=== PATIENT | female | born 1930 | race Caucasian/White ===

== ENCOUNTER 2018-07-31 05:13 | Inpatient (IN) | payer MEDICARE, OTHER ==
[~2018-07-31] VITALS: Ht 165.1 cm; Wt 75.3 kg
[2018-07-31] MEDS ORDERED: FOLBIC TABLET1 EACH PO (05:31)
[2018-07-31] MEDS ORDERED: K-TAB10 MEQ PO (05:31)
[2018-07-31] MEDS ORDERED: LOSARTAN-HCTZ1 EAC1 PO (05:32)
[2018-07-31] MEDS ORDERED: SYNTHROID100 MCG PO (05:32)
--- NOTE | 2018-07-31 13:45 | NUR ---
07/31/18 Rhoda5 Michelle James 1317- PT ARRIVES TO PACU FROM OR ON 8 L VIA MASK WITH SATS >90%. PT UNRESPONSIVE TO VERBAL STIMULUS. NG TUBE ON LOW INTERMITTENT SUCTION. FREQUENT PVCS NOTED ON HEART MONITOR. SURGICAL DRESSING CDI. 1323- PT TITRATED TO 6 L VIA MASK. O2 SATS >90%. PT RESPONDS TO VERBAL STIMULUS BUT UNABLE TO FOLLOW COMMANDS. PT STATES "A LITTLE PAIN" BUT TOLERABLE AND DECLINES NEED FOR PAIN MEDICATION. 1324- PT TITRATED TO RA WITH SATS >90%. PT REMAINS AROUSABLE BUT VERY DROWSY. FREQUENT PVCS AND SOME PACS NOTED ON MONITOR. 1340- PT DESATS TO 88% ON RA. PT RIGHT LATERAL. 2 L VIA NC APPLIED. FOLLOW UP OXYGEN SATS 99%. RESP EVEN AND UNLABORED.
--- NOTE | 2018-07-31 15:00 | NUR ---
PT HAS ARRIVED TO CCU INTO ROOM 129 AT 1445 WITH DAUGHTER AND FAMILY FRIEND AT HER SIDE. UPON ARRIVAL, PT IS AWAKE AND ALERT BUT FORGETFUL AND DISORIENTED TO THE DATE. SHE DENIES ANY PAIN. STATES SHE HAS NO N/V. NO SOB. PT VERY PLEASANT, CALM AND COOPERATIVE. SHE ARRIVED WITH NG IN PLACE- THIS RN HOOKED NG TO INTERMIT WALL SUCTION PER ORDER. NG HAS DARK GREEN OUTPUT IN TUBING; TUBE SECURED TO NOSE WITH TAPE. CLEAR/DIM LUNG SOUNDS. ROOM AIR. BOWEL SOUNDS HYPOACTIVE IN ALL QUADRANTS. TETE SURGICAL INCISION- FOAM DRSG C/D/I AND IN PLACE OVER INCISION. PT ARRIVES WITH 20 G PIV IN RIGHT WRIST- WNL AND D5LR @ 125 ML/HR. PT ARRIVES WITH CARPIO IN PLACE- DRAINING ADEQUATE URINE OUTPUT THAT IS CLEAR, LIGHT YELLOW. PT PLACED ON TELE MONITOR AND IS SR WITH OCCASSIONAL PVC AND PAC'S. PT SIPPING ICE WATER WITHOUT COMPLICATION. EDUCATION GIVEN ON POST OP CARE/PLAN OF CARE. NO QUESTIONS OR CONCERNS. SCD IN PLACE AND ON. CALL LIGHT WITHIN REACH. FALL PRECAUTIONS IN PLACE. WILL CONTINUE TO MONITOR.
--- NOTE | 2018-07-31 16:00 | NUR ---
PT RESTING IN BED WITH DAUGHTER AT THE BEDSIDE. PT HAS NO C/O PAIN, NO N/V. NG REMAINS ON INTERMITTENT SUCTION. PT STATES SHE IS COMFORTABLE WITH NO CONCERNS OR REQUESTS. CALL LIGHT WITHIN REACH. SCD REMAIN IN PLACE. WILL CONTINUE TO MONITOR.
--- NOTE | 2018-07-31 17:30 | NUR ---
DR. BEGUM AT BEDSIDE UPDATING PT'S DAUGHTER ON PLAN OF CARE AND SURGICAL PROCEDURE. PT STATES SHE'S COMFORTABLE AT THIS TIME WITH NO PAIN. NO QUESTIONS OR CONCERNS. CALL LIGHT WITHIN REACH. WILL CONTINUE TO MONITOR.
--- NOTE | 2018-07-31 17:55 | HP ---
[facility] [address], [place] [address] Signed ADMISSION DATE: 07/31/2018 REASON FOR ADMISSION: Acute small bowel obstruction. HISTORY OF PRESENT ILLNESS: This 87-year-old white woman is known to me from the past socially and presented to the emergency room with complaints of low to mid abdominal pain. She was evaluated by Dr. Montenegro and found to have mild tenderness above a creatinine to 1.15 and some nausea, but no particular vomiting. A CT scan was obtained, which showed a decompressed colon as well as numerous loops of dilated fluid-filled small bowel loops in the left abdomen and anteriorly in the pelvis consistent with small bowel obstruction. There appeared to be a tethered appearance at the root of the mesentery. I have reviewed the CT scan with Dr. Linares, the interpreting radiologist as well. There is moderate free fluid in the pelvis. Urinary bladder and gynecologic organs were considered normal. There are degenerative changes of the spine and some calcific changes of the aorta. The superior mesenteric artery and celiac artery are well patent however. The patient's onset was rather sudden and yesterday. Her only abdominal operation in the past has been cholecystectomy. PAST MEDICAL HISTORY: Rather unremarkable. She saw her primary physician Dr. Ford only yesterday and got a "clean bill of health." SOCIAL HISTORY: She has lived in [place] for many decades. She is a . She has grown daughters. She is accompanied by Massiel Presley, a family friend. REVIEW OF SYSTEMS: She denies any shortness of breath or chest pain. She is having no blood per rectum or hematemesis. Nasogastric tube has been placed showing some improvement of her symptoms apparently. PHYSICAL EXAMINATION: GENERAL: Pleasant white woman who is alert and oriented. HEENT: Mucous membranes are dry. Trachea is midline. CHEST: Clear. HEART: Regular without murmur. Electronically Signed By: BRIAN BEGUM MD 07/31/18 8195 PATIENT NAME: ARNAV HERNANDEZ HISTORY AND PHYSICAL DATE OF : 34 REPORT #: [id number] PHYSICIAN: BRIAN BEGUM MD PCP: ÁLVARO FORD DO REPORT IS CONFIDENTIAL AND NOT TO BE RELEASED WITHOUT AUTHORIZATION [facility] [address], [place] [address] Signed ABDOMEN: Not particularly distended. There is mild tenderness in the epigastric and periumbilical area. There is no gross evidence of ascites. EXTREMITIES: Lower extremities show large calves, but no edema particularly and no sign of deep venous thrombosis. LABORATORY STUDIES: Show a Chem profile, which is normal except for a sodium that is 130. Her T4 is 1.48, TSH 4.87, slightly elevated. Vitamin D level is 38. White count is 5.0 with hematocrit of 40.2. These are all lab studies from July 30. Her lab today shows a white count of 9.9, hematocrit of 46.2, platelets of 218,000. Chem profile showing a creatinine now elevated to 1.15, up from 0.99; calcium of 10.5; glucose of 179; lipase at 39. Urinalysis is essentially normal. Review of the CT scan shows edematous jejunal loops to the right side of the abdomen and a jumble of small bowel, which is dilated and some bowel in the pelvis which seems to be decompressed. At the base of the small bowel mesentery, there is an inflammatory focus suggestive though not diagnostic of an adhesive band or something of that sort. ASSESSMENT: The patient has acute onset of small bowel obstruction with significant distention and edema of the bowel loops. Emergent exploration and remedy of this problem is indicated. She needs additional fluids currently and prophylactic antibiotics will be administered as well as Pepcid and so on. I discussed with the patient and her friend who attends her the risk of bleeding, infection, need for bowel resection, need for other indicated procedures, not currently foreseen and so on. Despite her advanced age of 87 years, she remains quite reasonably healthy. She understands the risks as does her friend and wished to proceed. MD CELE Cruz/ELIAL /[id number] Electronically Signed By: BRIAN BEGUM MD 07/31/18 1755 PATIENT NAME: ARNAV HERNANDEZ HISTORY AND PHYSICAL DATE OF : 34 REPORT #: [id number] PHYSICIAN: BRIAN BEGUM MD PCP: ÁLVARO FORD DO REPORT IS CONFIDENTIAL AND NOT TO BE RELEASED WITHOUT AUTHORIZATION [facility] [address], [place] [address] Signed cc: DO Marika Calvo DO Copies: ÁLVARO FORD KATHLEEN DO ~ Electronically Signed By: BRIAN BEGUM MD 07/31/18 1755 PATIENT NAME: ARNAV HERNANDEZ HISTORY AND PHYSICAL DATE OF : 34 REPORT #: [id number] PHYSICIAN: BRIAN BEGUM MD PCP: ÁLVARO FORD DO REPORT IS CONFIDENTIAL AND NOT TO BE RELEASED WITHOUT AUTHORIZATION
--- NOTE | 2018-07-31 18:50 | NUR ---
PT RESTING IN BED COMFORTABLY WITH NO QUESTIONS OR CONCERNS. STATES SHE'S COMFORTABLE AND STILL REFUSES ANY PAIN MEDICATION- NOC DOSE OF OFIRMEV DUE SOON. CALL LIGHT WITHIN REACH. FALL PRECAUTIONS IN PLACE. SCD ON. WILL CONTINUE TO MONITOR AND HAND OFF TO NOC SHIFT.
--- NOTE | 2018-07-31 20:28 | NUR ---
AWAKENS EASILY, IS ESS ORIENTED BUT IS QUESTIONABLY HARD OF HEARING WHEN ASKED A QUESTION WOULD AT FIRST GIVE AN ANSWER THAT DIDN'T MAKE SENSE BUT WHEN ASKED AGAIN WAS CORRECT. ABLE TO MOVE SELF WELL IN BED. INCISION DRY AND INTACT.
--- NOTE | 2018-07-31 22:05 | NUR ---
HAS TURNED SELF TO SIDE AND IS ASLEEP.
--- NOTE | 2018-07-31 23:57 | NUR ---
AWAKENS EASILY, HAD TURNED IN BED AND LINES AND WIRES WERE WRAPPED AROUND PT. UNTANGLE. IS ALERT, CONFUSED TO DATE, REMINDED AND THE LONGER PT IS AWAKE THE LESS CONFUSED SHE BECAME. DENIES PAIN AND STATES FEELS GOOD. DRSG IS DRY AND INTACT.
--- NOTE | 2018-08-01 02:30 | NUR ---
C/O SORE THROAT, GIVEN ROUTINE IV TYLENOL AND SIP WATER, THE WATER DID HELP SOME. NO ABD PAIN.
--- NOTE | 2018-08-01 04:22 | NUR ---
AWAKENS EASILY. CONT TO HAVE MILD SORE THROAT.
--- NOTE | 2018-08-01 06:31 | NUR ---
AWAKE, ALERT, VERY PLEASANT AND TALKATIVE. NO C/O. REPOSTIONED. HAS TAKEN WATER WELL IN MODERATE AMTS.
--- NOTE | 2018-08-01 08:35 | NUR ---
PT RESTING IN BED AT THIS TIME, HER DAUGHTER JUST ARRIVED AT THE BEDSIDE. PT IS VERY PLEASANT, CALM AND COOPERATIVE. PT STATES SHE HAS A HEADACHE OF A 5 OUT OF 10- PRN TORADOL GIVEN. OTHER THAN HER HEADACHE, SHE STATES SHE'S HAVING NO PAIN. NO N/V. NO SOB OR BREATHING PROBLEMS. ASSESSMENT COMPLETED. A/O X4, CLEAR LUNGS. ROOM AIR. D5LR @125 ML/HR RUNNING INTO RIGHT WRIST PIV WITHOUT ISSUES. NGT IN PLACE TO LOW INT WALL SUCTION; NO DRAINAGE PRESENT IN THE TUBING. BOWEL TONES ACTIVE IN UPPER QUADRANTS AND HYPOACTIVE IN LOWER. TETE SURGICAL INCISION IT IS UNDER MEPILEX DRSG WHICH IS C/D/I. PT STATES SHE HASN'T STARTED PASSING GAS YET BUT SHE HAS "BURPED A FEW TIMES." ALL EXTREMITIES STRONG. NSR ON CONTINUOUS TELE WITH OCCASSIONAL PAC'S AND PVC'S. VSS. CARPIO CATHETER IN PLACE DRAINING ADEQUATE, CLEAR YELLOW URINE. PT AND DAUGHTER HAVE NO QUESTIONS OR CONCERNS AND ARE JUST AWAITING DR. BEGUM TO ROUND. CALL LIGHT WITHIN REACH. FALL PRECAUTIONS IN PLACE. SCD'S IN PLACE AND ON. WILL CONTINUE TO MONITOR AND FOLLOW UP ON HEADACHE PAIN CONTROL.
--- NOTE | 2018-08-01 09:45 | NUR ---
PT LAUGHING AND VISITING WITH DAUGHTER AND 2 OTHER FRIENDS AT THE BEDSIDE HERE TO VISIT HER. PT STATES THAT HER HEADACHE IS "MUCH BETTER" AND RATES IT AT A 2 OUT OF 10. PT DENIES ANY NEEDS AT THIS TIME. STATES SHE'S COMFORTABLE AND HAS NO QUESTIONS. CALL LIGHT WITHIN REACH. WILL CONTINUE TO MONITOR.
--- NOTE | 2018-08-01 11:05 | NUR ---
PT STATES HER HEADACHE REMAINS BUT ISN'T "TOO BAD." STATES SHE'S COMFORTABLE. NO QUESTIONS OR NEEDS TO BE MET. DAUGHTER AT BEDSIDE VISITING WITH PT. OFFERED TO HELP PT WITH BEDBATH BUT PT REFUSES, REQUESTING TO GET ONE THIS EVENING. PT ALSO AGREES TO GET UP INTO THE CHAIR AND OUT OF BED WITHIN THE HOUR. I WILL CHECK BACK AND HELP HER WITH THIS. CALL LIGHT WITHIN REACH. WILL CONTINUE TO MONITOR.
--- NOTE | 2018-08-01 12:00 | NUR ---
REPORT GIVEN TO RECEIVING RN JITENDRA; PT TRANSFERED TO M/S UNIT TO ROOM 110 WITH ALL BELONGINGS AND DAUGHTER AT HER SIDE.
--- NOTE | 2018-08-01 12:06 | NUR ---
PT TRANSFERRED TO MED SURG UNIT IN BED. ARRIVED AT 1200. VSS. DAUGHTER, SB, AT BEDSIDE. NG TO EVARISTO.
--- NOTE | 2018-08-01 12:15 | NUR ---
PATIENT SET UP IN CHAIR WITH OLGA LIDIA LOERA. IVF INFUSING. CARPIO DRAINING WELL. ICE WATER PROVIDED. FEET ELEVATED. NO OTHER NEEDS AT THIS TIME.
--- NOTE | 2018-08-01 14:13 | NUR ---
PT IS VISITING WITH A FRIEND AND HAS NO REQUESTS AT THIS TIME. VS AND I&O'S TAKEN AND DOCUMENTED. INFORMED PT TO CALL IF SHE NEEDS ANYTHING. CALL LIGHT IS IN REACH.
--- NOTE | 2018-08-01 15:04 | OR ---
[facility] [address], [place] [address] Signed DATE OF OPERATION: 07/31/2018 SURGEON: Brian Begum MD PREOPERATIVE DIAGNOSIS: Acute small bowel obstruction with severe ischemic changes. POSTOPERATIVE DIAGNOSIS: Acute small bowel obstruction with severe ischemic changes secondary to single adhesive band at root of mesentery with segmental torsion. PROCEDURES PERFORMED: 1. Exploratory laparotomy lysis of inifocal adhesive band. 2. Segmental small bowel resection with [id number] (functional end-to-end) enteroenterostomy of mid small bowel. Resected specimen 12-16 incches length ANESTHESIA: General endotracheal, Brian Cuenca CRNA. INDICATION: This 87-year-old white woman only yesterday saw Dr. Piyush Ford, her primary care physician, and was given a "clean bill of health" as she was doing so well. In general terms, she has very good health. Late yesterday she began having upper abdominal pain and presented to the emergency room today and was evaluated by Dr. Marika Montenegro for upper abdominal pain and distention. A CT scan was performed, which showed marked inflammatory change of the segment of small bowel suggestive of an adhesive band for obstruction. She had markedly thickened small bowel up to 1.5 cm in one area and a fair amount of fluid. The findings are suggestive of an obstruction either related to adhesions or segmental volvulus or something of that sort. Given its appearance and the fact that she has had no extensive abdominal operation (only an open cholecystectomy many years ago), I have recommended rather urgent exploration and remedy of the small bowel obstruction. The risks of bleeding, infection, need for bowel resection, other unforeseen complications were all reviewed in detail. She understands and wished to proceed. FINDINGS: Indeed there was ischemic bowel. It was not frankly necrotic, but markedly ischemic, edematous, and so forth. It was related to a single adhesive band located at the root of the mesentery, which had caused obstruction and torsion of that segment of bowel. Electronically Signed By: BRIAN BEGUM MD 08/01/18 1504 PATIENT NAME: ARNAV HERNANDEZ OPERATIVE REPORT DATE OF : 34 REPORT #: [id number] PHYSICIAN: BRIAN BEGUM MD PCP: PIYUSH FORD DO REPORT IS CONFIDENTIAL AND NOT TO BE RELEASED WITHOUT AUTHORIZATION [facility] [address] [place] [id number] Signed Resection was required, though time was allowed to assess if the bowel would "shape up" enough to reliably be left as is. Segmental resection included approximately 12-18 inches of small bowel in the midportion. A side-to- side functional end-to-end enteroenterostomy was accomplished. There were no other findings of concern. DESCRIPTION OF PROCEDURE: The patient was brought to the operating room, given a general endotracheal anesthetic. Preoperative antibiotic cefoxitin was given. Sequential compression device stockings used and a Doran catheter placed. A nasogastric tube was already in place draining bilious fluid. A small incision was made inferior to the umbilicus. Dissection carried through the abdominal wall pannus and abdomen entered. Copious amounts of bloody ascites type fluid were noted. Gentle palpation within the abdomen showed some bowel loops completely normal and others distended and markedly ischemic. Photographs were taken. With all due care, bowel loops were delivered from the abdomen and palpation revealed an area of obvious tethering of bowel and torsion of segment of bowel. Further evaluation in opening of the abdomen revealed a single adhesive band to the root of the mesentery as the point of obstruction and internal torsion. This was divided sharply relieving the bowel obstruction and torsion entirely. The small bowel was then delivered out of the abdomen and examined carefully. Thrombotic changes of the mesentery and markedly ischemic bowel segment was noted and photographs taken of that as well. Once the bowel was fully eviscerated and irrigation undertaken, irrigation fluid suctioned free. Reassessment of the bowel for viability was undertaken. Although none of the bowel was frankly gangrenous, it was so markedly ischemic I think it unlikely that it would have recovered actually critically as there was thrombotic changes of the mesentery associated with it. Nevertheless, the bowels were placed into the abdomen with all due care, warm water applied, and 5-8 minutes of time elapsed to allow for reassessment. The bowel was once again withdrawn from the abdomen and the area of ischemia more clearly defined. Given her advanced age and so forth, the probability of highest segmental resection with anastomosis would be the most safe course. On that basis, the segment of bowel had considered ischemic, was marked with silk sutures on the antimesenteric aspect, and using electrocautery the mesentery was scored. Sequential application of hemostats was undertaken to the mesenteric vessels and the vascular pedicle secured with 2-0 silk ties. Once the mesentery was completely divided and the bowel proximally and distally defined as viable, a DAVID stapling device 75 mm in length was used to transect the bowel ends. Consideration was made for end-to-end enteroenterostomy, but a etep-ay-ckeo anastomosis may provide a more expedient recovery in her situation and on that basis, a stapled anastomosis was deemed advisable. Silk sutures were used to secure the antimesenteric serosal aspect of the bowel. The staple line was partially secured with interrupted 3-0 silk sutures. Corners of the cut ends of the bowel were excised and the anvils of the Endo-DAVID passed down the bowel loops securing them well. Care was taken to ascertain Electronically Signed By: BRIAN BEGUM MD 08/01/18 1504 PATIENT NAME: ARNAV HERNANDEZ OPERATIVE REPORT DATE OF : 34 REPORT #: [id number] PHYSICIAN: BRIAN BEGUM MD PCP: PIYUSH FORD DO REPORT IS CONFIDENTIAL AND NOT TO BE RELEASED WITHOUT AUTHORIZATION [facility] [address] [place], [place] [address] Signed that the mesentery was not involved in the anastomosis of course. The DAVID stapling device 75 mm in length was fired providing a good anastomotic connection. The anastomotic staple line was examined and found to be hemostatic. Some semi-formed stool or enteric contents within the bowel was removed. The open end of bowel was reapproximated in a watertight closure with two-layer technique of interrupted 3-0 Vicryl and interrupted 3-0 silk. The anastomosis appeared completely viable. The mesenteric defect was secured with running 3-0 silk suture so as to avoid postoperative transmesenteric herniation. The bowel was returned to the abdominal cavity and abdomen copiously irrigated with warm saline solution. Plans were then made for closure. The midline fascia was reapproximated with running bidirectional #1 PDS suture. Subcutaneous tissue irrigated and skin closed with running subcuticular 3-0 Vicryl. Steri-Strips were applied as was a Mepilex silver sponge dressing and an OpSite. The patient tolerated the procedure well. BLOOD LOSS: Minimal. COMPLICATIONS: None. Brian Begum MD JM/MODL /[id number] cc: DO Marika Calvo DO Copies: PIYUSH FORD KATHLEEN DO ~ Electronically Signed By: BRIAN BEGUM MD 08/01/18 1504 PATIENT NAME: ARNAV HERNANDEZ OPERATIVE REPORT DATE OF : 34 REPORT #: [id number] PHYSICIAN: BRIAN BEGUM MD PCP: PIYUSH FORD DO REPORT IS CONFIDENTIAL AND NOT TO BE RELEASED WITHOUT AUTHORIZATION
--- NOTE | 2018-08-01 20:35 | NUR ---
UP TO BR, VOIDEDM BACK TO BED,
--- NOTE | 2018-08-01 21:12 | NUR ---
ROUNDED CHARGE. PATIENT ASSISTED TO AMBULATE X2 LAPS AROUND THE FLOOR. PATIENT DID WELL WITH AMBULATION. PATIENT IS A SBA. PATIENT COMPLAINS OF ABD. PAIN. PATIENT EXPRESSES CONCERN WITH TH PAIN AND FEELING BLOATED. ASSESED PATIENT. ABD SOUNDS ARE ACTIVE. ABD IS DOSFT TO THE TOUCH AND TENDER IN A FEW PLACES. NO DRAINAGE NOTED ON MEPILEX AND OPSITE. PATIENT EDUCATED ON POST-OP PAIN AND GAS. PATIENT PROVIDED WITH SUPPORT. PATIENT GIVEN PRN TORADOL PER ORDER FOR 8/10 PAIN IN HER ABD. PATIENT WAS ALSO ABLE TO VOID. PATIENT IS NOW RESING IN BED. PATIENT DENIES ANY FURTHER NEEDS AT THIS TIME. CALL LIGHT IN REACH.
--- NOTE | 2018-08-01 22:15 | NUR ---
PATIENT ASSISTED TO THE RESTROOM. PATIENT IS A SBA. PATIENT WAS ABLE TO VOID. PATIENTS DAUGHTER IS IN THE ROOM. PATIENT RATES PAIN AT A 6/10. PATIENT GIVEN PRN PAIN MEDICATION PER ORDER. PATIENT GIVEN WARM BLANKET. NO FURHTER NEEDS NOTED. CALL LIGHT IN REACH.
--- NOTE | 2018-08-01 22:43 | NUR ---
PATIENT IS RESTING IN BED. PATIENTS DAUGHTER IS LEAVING FOR THE EVENING. PATIENT RATES PAIN AT A 4/10 IN HER ABD. PATIENT STATED "THE PAIN MEDICATION HELPED". PATIENT DENIES THE NEED FOR ADDITIONAL PAIN MEDICATION AT THIS TIME. CALL LIGHT IN [facility]. NO FURTHER NEEDS AT THIS TIME.
--- NOTE | 2018-08-02 00:51 | EKG ---
[facility] [address] [facility] [place], [place] [address] Signed Normal sinus rhythm Nonspecific ST and T wave abnormality Abnormal ECG No previous ECGs available Confirmed by NEHEMIAS RODRIGUEZ MD ([id number]) on 08/02/2018 12:51:46 AM Electronically Signed By: NEHEMIAS RODRIGUEZ MD 08/02/18 005 PATIENT NAME: ARNAV HERNANDEZ Electrocardiogram DATE OF : 34 PHYSICIAN: NEHEMIAS RODRIGUEZ MD REPORT #: [id number] REPORT IS CONFIDENTIAL AND NOT TO BE RELEASED WITHOUT AUTHORIZATION
--- NOTE | 2018-08-02 01:52 | NUR ---
PT GOT OUT OF BED W/O CALLING FOR HELP, VOIDED QS YELLOW URINE, THEN CAME OUT TO HALLWAYS. PT SEEMED CONFUSED TO PLACE, REORIENTED AND WENT BACK TO BED. IV SITE INTACT. NO C/O PAIN, AND DRESSING INTACT. BED ALARM ON.
--- NOTE | 2018-08-02 03:14 | NUR ---
pt resting, eyes closed, no c/o pain no resp distress. bed alarm on
--- NOTE | 2018-08-02 04:57 | NUR ---
ear plugs given on request as pt is getting upset over the noise coming from the IV pump, explained to her the reason why se still needs the IVF, receptive. Turns self in bed.
--- NOTE | 2018-08-02 04:58 | NUR ---
PT HAS SLEPT THIS SHIFT. HAS TOLERATED CLEAR FLUIDS WELL, NO N/V. AND LOW MIDLINE INCISION COVERED WITH MEPILEX DRESSING CDI, STOMACH SOFT, PASSING GAS, NO BM THIS SHIFT YET, GETS UP WITH 1PA TO BR, HAS VOIDED QS. BED ALARM PLACED ON PT TRIED TO GET UP W/O CALLING AND HAS IVF INFUSING AND SCDS IN PLACE. HAS USED CALL LIGHT APPROPRIATELY LAST 3 TIMES. EAR PLUGS GIVEN ON REQUEST PT WAS C/O OF IV PUMPS BEING TOO NOISE, PT WAS MEDICATED WITH TORADOL AND DILAUDID IV PER C/O ABD PAIN EARLIER THIS SHIFT, MEDS EFFECTIVE
--- NOTE | 2018-08-02 05:53 | NUR ---
PT C/O TO C/O EXTREMELY ANNOYING,PAINFUL,DISTRESSING NOISE COMING FROM IV PUMP. IVF SL AT THIS TIME DUE TO PT CONTINUOUS C/O NOISE DISCOMFORT FROM IV PUMP. DR BEGUM TO BE NOTIFIED. PT HAS BEEN TOLERATING CLEAR LIQUIDS WELL AND VOIDING QS., PASSING GAS, NO C/O PAIN AT THIS TIME, ABD DRESSING CDI
--- NOTE | 2018-08-02 06:31 | NUR ---
PT CRAWLED OUT OF BED, BED ALARM WAS ON. UP TO BR, VOIDED, BACK TO BED. BED ALARM BACK ON. DR BEGUM NOTIFIED EARLIER OF PT BEING DONAVON CARRERA, STATED OK TO DONAVON PT.
--- NOTE | 2018-08-02 07:00 | NUR ---
REPORT RECEIVED FROM DEEJAY STEWARD. PT AWAKE AND WATCHING TV. PT REPORTS 2/10 PAIN THAT "REALLY ISN'T BAD." PT EXPANDS UPON "THOSE MACHIENES MAKING NOISE LAST NIGHT." PT APPEARS CHEERFUL AND HOPES TO WALK THIS MORNING. NO ADDITIONAL REQUESTS OR COMPLAINTS AT THIS TIME. BED ALARM ON. CALL LIGHT WITHIN REACH.
--- NOTE | 2018-08-02 07:52 | NUR ---
MORNING ASSESSMENT AND MEDICATIONS DUE. PT REPORTS 2/10 PAIN. PT ENCOURAGED TO WALK. PT UP TO AMBULATE X2 LAPS AROUND UNIT. PT REPORTS 1/10 PAIN AFTER WALK AND REPORTS PASSING GAS. PT STEADY ON FEET AND TOLERATES WALK W/O SOB. ASSESSMENT DONE. MEDICATION GIVEN. PT EATING CLEAR LIQUID DIET BREAKFAST, TOLERATING WELL. PT DENIES NAUSEA. CALL LIGHT WITHIN REACH.
--- NOTE | 2018-08-02 09:30 | NUR ---
THIS RN TO ROOM TO CHECK ON PT. PT REPORTS 0/10 PAIN AND IS VISITING WITH FAMILY. FAMILY UPDATED ON PT CONDITION. FAMILY VERBALIZES UNDERSTANDING AND STATES THEIR QUESTIONS HAVE BEEN ANSWERED. PT UP IN CHAIR. NO ADDITIONAL REQUESTS OR COMPLAINTS AT THIS TIME.
--- NOTE | 2018-08-02 10:04 | NUR ---
PT UP TO WALK WITH DAUGHTERS IN GAY. PT DENIES DIZZINESS, PAIN, AND NAUSEA AND IS STEADY ON FEET. PT ENCORUAGED TO DRINK FLUIDS. NO ADDITIONAL REQUESTS OR COMPLAINTS AT THIS TIME.
--- NOTE | 2018-08-02 10:13 | NUR ---
THIS RN TO BEDSIDE FOR ROUNDS WITH MD. DIET ADVANCED TO FULL LIQUID (WITH ADVANCE TOLERATED ORDER) PER MD. PT CONTINUES WALK WITH FAMILY. NO ADDITIONAL REQUESTS OR COMPLAINTS.
--- NOTE | 2018-08-02 10:40 | NUR ---
PT CALL LIGHT ON. THIS RN TO ROOM, PT STATES SHE IS WET AND NEEDS CHANGED. PT UP TO STAND WITH 1PA AND FWW, DEPENDS, GOWN AND CHUX CHANGED. JERO CARE DONE. PT BACK TO SITTING IN CHAIR. NO ADDITIONAL REQUESTS OR COMPLAINTS AT THIS TIME. CALL LIGHT WITHIN REACH.
--- NOTE | 2018-08-02 11:48 | NUR ---
PT CALL LIGHT ON. PT REQUESTS A MILKSHAKE, ENSURE MILKSHAKE PROVIDED REQUESTED. PT REPORTS 0/10 PAIN AND DENIES NAUSEA. NOON ASSESSMENT DONE. PT TOLERATING FULL LIQUIDS W/O NAUSEA. PT AMBULATING OFTEN WITH FAMILY MEMBERS. DRESSING CDI. NO ADDITIONAL REQUESTS OR COMPLAINTS AT THIS TIME. CALL LIGHT WITHIN REACH. FAMILY AT BEDSIDE.
--- NOTE | 2018-08-02 12:51 | NUR ---
PT SITTING IN CHAIR, ALERT AND ORIENTED. SHE IS VISITED BY HER 3 DAUGHTERS, AND SEEM TO BE ENJOYING EACH OTHER. PLEASANT VISIT, PT STATED THAT SHE IS FEELING MUCH BETTER THAN WHEN SHE DID ON ADMISSION. ENJOYING SOME "REAL FOOD" AND THE SHAKE DEEJAY ELIZONDO BROUGHT HER. EXTENDED A BLESSING, WILL FOLLOW NEEDED
--- NOTE | 2018-08-02 14:04 | NUR ---
THIS RN TO ROOM TO CHECK ON PT. PT STATES SHE IS "ANXIOUS" TO GO HOME. PT UPDATED ON PLAN OF CARE AND ADVANCING DIET. PT STATES SHE WANTS TO TRY SOLID FOOD. PT DENIES PAIN AND NAUSEA. DIET UPGRADED. TOAST AND JAM ORDERED PER PT REQUEST. PT VISITING WITH FAMILY. NO ADDITIONAL REQUESTS OR COMPLAINTS AT THIS TIME.
--- NOTE | 2018-08-02 15:18 | NUR ---
PT FINISHED WITH SHOWER AND BACK TO CHAIR. PT HAS HAD SMALL BM AND WAS ABLE TO EAT HER TOAST AND JAM. PT DENIES PAIN AND NAUSEA. PT ANTICIPATING DISCHARGE THIS EVENING. FAMILY AT BEDSIDE VISITING WITH PT. CALL LIGHT WITHIN REACH.
--- NOTE | 2018-08-02 16:05 | NUR ---
PATIENT IN BED RESTING. FAMILY IN ROOM. WATER REFRESHED. CALL LIGHT IN REACH. NO FURTHER NEEDS AT THIS TIME.
--- NOTE | 2018-08-02 16:44 | NUR ---
PT EXPECTS TO RETURN HOME UPON DC, STATES HER DAUGHTERS ARE HERE UNTIL AT LEAST MONDAY. 2 DAUGHTERS ARE PRESENT DURING THIS CONVERSATION. THEY DENIED QUESTIONS AT THIS TIME.
--- NOTE | 2018-08-02 16:56 | NUR ---
AFTERNOON ASSESSMENT DUE. THIS RN TO BEDSIDE. PT VISITING WITH DAUGHTERS. PT DENIES PAIN AND NAUSEA. PT ASSISTED WITH ORDERING A SANDWICH FOR DINNER. PT REPORTS HAVING 4 SMALL "WORM LIKE" BOWEL MOVEMENTS. ASSESSMENT DONE. PT ANTICIPATING DISCHARGE THIS EVENIGN. NO ADDITIONAL REQUESTS OR COMPLAINTS AT THIS TIME. CALL LIGHT WITHIN REACH.
--- NOTE | 2018-08-02 19:00 | NUR ---
PT HERE FOR SMALL BOWEL OBSTRUCTION POD2. PT TOLERATING FULL DIET TODAY WITH NO NAUSEA. ONE DOES OF TORDOL GIVEN THIS AM WITH 0/10 PAIN SINCE THAT TIME. PT UP TO AMBULTE MULTIPLE TIMES TODAY, STEADY ON FEET, SBA. PT HAS HAD 4 SMALL LOOSE BOWEL MOVEMENTS THIS AFTERNOON. [employer] AND [employer]PS[employer] DRESSING CDI THIS SHIFT. FAMILY AT BESIDE FOR MOST OF SHIFT. PT ANTICIPATING DISCHARGE IN AURICULAR THERAPIST. PT USES CALL LIGHT APPROPRIATLY.
--- NOTE | 2018-08-02 19:25 | NUR ---
IN ROOM FOR REPORT, PT HAS VISITORS IN THE ROOM AT THIS TIME. CALL LIGHT IS WITHIN REACH, SHE DENIES NEEDS.
--- NOTE | 2018-08-02 20:48 | NUR ---
CHARGE NURSE ROUNDING NOTE: NO C/O PAIN, ABD DRESSING INTACT. TOLERATING DIET WELL, STATES SHE IS PASSING GAS AND HAD A SMALL BM EARLIER TODAY. UP IN CHAIR VISITING WITH FAMILY, CALL LIGHT AND FLUIDS AT BEDSIDE,
--- NOTE | 2018-08-02 21:30 | NUR ---
VITALS AND I&OS DONE AND CHARTED. HELPED PT TO THE BATHROOM AND BACK TO BED. BED ALARM SET. BEDSIDE TABLE AND CALL LIGHT IN REACH.
--- NOTE | 2018-08-02 21:30 | NUR ---
IN ROOM TO ASSESS PT AND ADMINISTER MEDICATIONS. PT DENIES PAIN AND N/V. DRESSING ON ABDOMEN IS CDI AND THERE IS A BRUISE JUST INFERIOR TO THE DRESSING. PT IS HOPING TO LEAVE IN THE MORNING. SHE DENIES NEEDS AT THIS TIME. CALL LIGHT IS CLOSE.
--- NOTE | 2018-08-02 22:00 | NUR ---
HELPED PT TO THE BATHROOM AND BACK TO BED. BED ALARM SET. BEDSIDE TABLE AND CALL LIGHT IN REACH.
--- NOTE | 2018-08-02 22:44 | NUR ---
HELPED PT TO RESTROOM SBA AND BACK TO BED, SHE DENIES FURTHER NEEDS. CALL LIGHT IS CLOSE AND BED ALARM IS ON.
--- NOTE | 2018-08-02 23:15 | NUR ---
HELPED PT TO THE BATHROOM AND BACK TO BED. TURNED OFF HER TV FOR HER. BEDSIDE TABLE AND CALL LIGHT IN REACH. BED ALARM SET.
--- NOTE | 2018-08-03 00:20 | NUR ---
HELPED PT TO THE BATHROOM AND BACK TO BED. BED ALARM SET. BEDSIDE TABLE AND CALL LIGHT IN REACH. PT NEEDS NOTHING ELSE AT THIS TIME.
--- NOTE | 2018-08-03 02:22 | NUR ---
PT IS RESTING WITH EYES CLOSED, RESPIRATIONS ARE EVEN AND NONLABORED. CALL LIGH IS CLOSE AND BED ALARM IS ON.
--- NOTE | 2018-08-03 04:25 | NUR ---
PT IS RESTING WITH EYES CLOSED, RESPIRATIONS ARE EVEN AND NONLABORED. CALL LIGHT IS CLOSE.
--- NOTE | 2018-08-03 05:17 | NUR ---
PT IS UP TO USE RESTROOM AT THIS TIME, SHE IS ASSISTED BY CONCIERGE MANAGER.
--- NOTE | 2018-08-03 05:27 | NUR ---
PT DENIED PAIN THROUGH THE NIGHT BUT THIS MORNING SHE REPORTS A BURNING SENSATION UNDER THE BANDAGE ON THE SKIN. SHE DENIES THE NEED FOR PAIN MEDICINE. SHE IS SBA AND IV IS SL. SHE IS TOLERATING A REGULAR DIET. DRESSING IS CDI. SHE IS ON RA. SHE REFUSES SCDS BECAUSE THEY KEEP HER AWAKE AT NIGHT. SHE HOPES TO GO HOME TODAY.
--- NOTE | 2018-08-03 06:55 | NUR ---
HELPED PT TO THE RESTROOM AND BACK TO BED. SHE DENIES NEEDS AT THIS TIME. CALL LIGHT IS WITHIN REACH.
--- NOTE | 2018-08-03 08:00 | NUR ---
RECEIVED REPORT AT 0700, FOUND PT IN BED WATCHING TV. PT HAD NO NEEDS OR COCNERNS AT THAT TIME.
[2018-08-03] MEDS ORDERED: IBUPROFEN600 MG PO (09:18)
[2018-08-03] MEDS ORDERED: MAPAP325 MG PO (09:19)
--- NOTE | 2018-08-03 11:52 | NUR ---
PT UP AMBULATING IN THE HALLS-BIG SMILE AND READY TO BE DC'D. EXTENDED A BLESSING, WILL FOLLOW NEEDED
--- NOTE | 2018-08-04 13:38 | DS ---
[facility] [address] [place] [place], [place] [address] Signed ADMISSION DATE: 07/31/2018 DISCHARGE DATE: 08/03/2018 REASON FOR ADMISSION: This 87-year-old white woman, the day before current admission, saw her primary physician, Dr. Ford and was doing quite well. Later in the day, she began having severe upper abdominal pain and presented to the emergency room, where she was evaluated by Dr. Zeeshan Zarco for upper abdominal pain and distention. A CT scan was performed, which showed marked inflammatory change of a segment of small bowel suggestive of an adhesive band with internal volvulus and obstruction with some markedly thickened bowel up to 1.5 cm nodule in one area and a fair amount of fluid. She did have tenderness. She was admitted for further evaluation and care. PERTINENT PHYSICAL EXAMINATION: GENERAL: Showed a well-developed and well-nourished, alert and oriented white woman, who was uncomfortable. She showed no evidence of systemic toxicity, however. CHEST: Clear. HEART: Regular. ABDOMEN: Showed tenderness in the epigastric and left abdominal area. EXTREMITIES: Showed no clubbing, cyanosis, or edema, but she did have lower extremity obesity. HOSPITAL COURSE: She was urgently fluid resuscitated, given intravenous antibiotics, and taken directly to operation. Exploratory laparotomy was undertaken showing ischemic bowel, a segment at least 12-14 inches in length. 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 There was no sign of extensive adhesions, only a single unifocal adhesive band at the root of the mesentery. This was divided allowing for delivery of the small bowel. Despite efforts to allow for natural recovery of the bowel's nutritive blood supply, there was thrombosis noted on the mesenteric side of the segment of bowel. She required segmental small bowel resection, approximately 12 to 16 inches of small bowel was resected. A [id number] functional end-to-end staple anastomosis was accomplished. Postoperatively, she was maintained in intensive care unit given her advanced age and need for additional fluid resuscitation. She was noted to be markedly improved postoperatively and advanced to a regular nursing floor and advanced in a diet from liquids to full and ultimately a solid diet, which she tolerated well. By the time of discharge, she is ambulating well. The wound is healing nicely. She has no abdominal Electronically Signed By: BRIAN BEGUM MD 08/04/18 1338 PATIENT NAME: ARNAV HERNANDEZ DISCHARGE SUMMARY DATE OF : 34 REPORT #: [id number] PHYSICIAN: BRIAN BEGUM MD PCP: PIYUSH FORD DO REPORT IS CONFIDENTIAL AND NOT TO BE RELEASED WITHOUT AUTHORIZATION [facility] [address] [place] [id number] Signed pain at all and having bowel movements. FOLLOWUP PLAN: She is return to see me in approximately a month or so. She will continue to ambulate on a daily basis. DISCHARGE MEDICATIONS: Include ibuprofen 600 mg p.o. q.6 hours as needed for pain, #30 and Tylenol 325 mg tablets, two tablets p.o. q.6 hours p.r.n. pain, #30. She will resume her usual medications, potassium 10 mEq p.o. daily, folic acid one tablet p.o. daily, Synthroid 100 mcg p.o. daily, losartan and hydrochlorothiazide 1 tablet p.o. daily. ALLERGIES: Morphine, codeine, and hydrocodone. DISCHARGE DIAGNOSES: 1. 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 2. Hypothyroidism. 3. Hypertension. 4. Obesity. MD CELE Cruz/MODL /[id number] cc: DO Piyush Moya DO Copies: ZEESHAN ZARCO DO Electronically Signed By: BRIAN BEGUM MD 08/04/18 1338 PATIENT NAME: ARNAV HERNANDEZ DISCHARGE SUMMARY DATE OF : 34 REPORT #: [id number] PHYSICIAN: BRIAN BEGUM MD PCP: PIYUSH FORD DO REPORT IS CONFIDENTIAL AND NOT TO BE RELEASED WITHOUT AUTHORIZATION [address] [address] Signed PIYUSH FORD DO ~ Electronically Signed By: BRIAN BEGUM MD 08/04/18 1338 PATIENT NAME: ARNAV HERNANDEZ JUANY DISCHARGE SUMMARY DATE OF : 34 REPORT #: [id number] PHYSICIAN: BRIAN BEGUM MD PCP: PIYUSH FORD DO REPORT IS CONFIDENTIAL AND NOT TO BE RELEASED WITHOUT AUTHORIZATION
== END 2018-08-03 10:35 | disposition home or self-care (01) | DRG 330 ==
LOC: ED 05:13 → CCU 09:42 → DSVR 09:42 → CCU 14:40 → MS 08-01 11:55
PROVIDERS: ADMIT Surgery
PROC: 0DB80ZZ Excision of Small Intestine, Open Approach (ICD-10-PCS; principal; 2018-07-31 11:45)
DX: K56.50 Intestinal adhesions [bands], unspecified as to partial versus complete obstruction (principal); K55.9 Vascular disorder of intestine, unspecified; I10 Essential (primary) hypertension; E66.9 Obesity, unspecified; E03.9 Hypothyroidism, unspecified; Z68.27 Body mass index [BMI] 27.0-27.9, adult; Z66 Do not resuscitate; Z87.891 Personal history of nicotine dependence; Z79.899 Other long term (current) drug therapy; Z88.5 Allergy status to narcotic agent; Z90.49 Acquired absence of other specified parts of digestive tract
CPT/HCPCS: 00840; 36415; 74018; 74177; 80053; 81001; 83690; 85025; 88307; 93005; 93010; 96361; 96374; 96375; 96376; 99285-25; J0131; J0694; J1100; J1170; J1644; J1720; J1885; J2250; J2405; J2704; J2765; J3010; J7030; J7120; Q9967

== ENCOUNTER 2018-08-08 04:19 | Observation (INO) | payer MEDICARE, OTHER ==
[~2018-08-08] VITALS: Ht 165.1 cm; Wt 75.0 kg
[~2018-08-08 04:19] MED LIST: FOLBIC TABLET1 EACH PO; IBUPROFEN600 MG PO; K-TAB10 MEQ PO; LOSARTAN-HCTZ1 EAC1 PO; MAPAP325 MG PO; SYNTHROID100 MCG PO
--- OUTSIDE RECORDS SUMMARY | 2018-08-08 04:24 | XMS ---
PreManage Notification: ARNAV HERNNADEZ Security Supervisor Seaming Events No recent Security Events currently on file CRITERIA MET - [facility] - 2 Visits in 30 Days CARE PROVIDERS Juventino Grande MD PHONE: Unknown Nathan has no Care Guidelines for this patient. Carmela VISIT COUNT (12 MO.) 2 [facility] TOTAL 2 NOTE: Visits indicate total known visits. ED/UCC VISIT TRACKING (12 MO.) 08/08/2018 04:19 [facility] TYPE: Emergency COMPLAINT: - VOMITING,ABD PAIN 07/31/2018 05:14 [facility] TYPE: Emergency COMPLAINT: - ABD PAIN,VOMITING INPATIENT VISIT TRACKING (12 MO.) 07/31/2018 09:42 [facility] TYPE: Medical Surgical COMPLAINT: - SMALL BOWEL OBSTRUCTION DIAGNOSES: - Obesity, unspecified - Hypothyroidism, unspecified - Acquired absence of other specified parts of digestive tract - Body mass index (BMI) 27.0-27.9, adult - Essential (primary) hypertension - Personal history of nicotine dependence - Acquired absence of other specified parts of digestive tract - Do not resuscitate - Allergy status to narcotic agent status - Intestinal adhesions [bands], unspecified as to partial versus complete obstruction - Vascular disorder of intestine, unspecified - Do not resuscitate - Unspecified intestinal obstruction, unspecified as to partial versus complete obstruction - Essential (primary) hypertension - Body mass index (BMI) 27.0-27.9, adult - Other nursing home (current) drug therapy - Allergy status to narcotic agent status - Other manager long term care (current) drug therapy - 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
--- NOTE | 2018-08-08 07:30 | NUR ---
PT ARRIVES TO MED SURG FLOOR VIA STRETCHER. SBA TO RESTROOM FOR VOID AND BACK TO BED, GAIT STEADY. VSS. PT RATES PAIN 2/10 IN ABDOMEN, STATES "OKAY". NO C/O NAUSEA AT THIS TIME. INSTRUCTED PT TO USE CALL LIGHT FOR ANY NEEDS, INCREASE IN PAIN, VERBALIZES UNDERSTANDING. CALL LIGHT IN REACH.
--- NOTE | 2018-08-08 07:38 | NUR ---
REPORT FROM BRITTANEY VILLALBA. PT TO ROOM 113 ON ED STRETCHER, AMBULATES TO RESTROOM WITH STAND BY ASSIST
--- NOTE | 2018-08-08 08:05 | NUR ---
PT RESTING SUPINE IN BED VISITING WITH FAMILY. CALL LIGHT AND H20 IN REACH. PT DENIES NEEDS OR CONCERNS.
--- NOTE | 2018-08-08 08:23 | NUR ---
PATIENT RESTING IN BED, CALL LIGHT IN REACH. PATIENT GIVEN WARM BLANKETS AND OFFERED AM CARE. NO OTHER NEEDS AT THIS TIME.
--- NOTE | 2018-08-08 08:57 | NUR ---
URINE SAMPLE COLLECTED AND SENT TO LAB.
--- NOTE | 2018-08-08 09:32 | NUR ---
NGT PLACED PER ORDER. PLACED TO PT RIGHT NOSTRIL. PT TOLERATED WELL. NO DIFFICULTY WITH ADVANCING. PT TOLERATED VERY WELL. 20ML AIR FLUSHED IN TUBE FOR BEDSIDE ASSESSMENT OF PLACEMENT AUSCULTATED AIR SOUND AT GASTRIC LEVEL. ASSESSED FLUIDS GREEN GASTRIC IN NATURE. PLACED PT TO LOW INTERMITTEN SUCTION, 400ML GREEN FLUID OUT AT THIS TIME, IMAGING IN ROOM AT THIS TIME.
--- NOTE | 2018-08-08 10:18 | NUR ---
PATIENT COMPLAINS OF CHAPPED LIPS AND A PAINFUL KNEE. PATIENT REPOSITIONED WITH PILLOW FOR COMFORT. PATIENT GIVEN CHAPSTICK, ICE CHIPS AND ORAL SWABS WITH RN'S PERMISSION. RN IN ROOM. CALL LIGHT IN REACH. NO OTHER NEEDS AT THIS TIME.
--- NOTE | 2018-08-08 10:29 | NUR ---
B/P NOTED TO BE 176 SYSTOLIC, PT REPORTS PAIN IN KNEE CHRONIC AND SORE THROAT. PT ADMINISTERED [id number] IV AND CEPACOL SELENA. AT THIS TIME ALSO GIVEN SIPSS OF WATER AND ICE CHIPS AT BEDSIDE FOR COMFORT. WILL RECHECK B/P AND PAIN ASSESSMENT.
[2018-08-08] MEDS ORDERED: FUROSEMIDE20 MG PO (11:44)
--- NOTE | 2018-08-08 12:38 | NUR ---
PT RESTING SUPINE IN BED WITH HOB ELEVATED CALL LIGHT AND MOISTENED TOOTHETS WITHIN REACH FOR COMFORT D/T NPO STATUS. PT DENIES PAIN, NAUSEA OR SOB. STATES THE BACK OF HER THROAT FEELS A LITTLE IRRITATED FROM THE NG TUBE BUT THAT IS TOLERABLE. NO FURTHER NEEDS OR CONCERNS VOICED AND PT APPEARS TO BE IN GOOD SPIRITS. NG REMAINS ON LOW INTERMITTANT SUCTION.
--- NOTE | 2018-08-08 13:56 | NUR ---
PT IN BED, ALERT AND ORIENTED. DISCOURAGED BUT NOT DEFEATED AT BEING BACK LESS THAN 1 WK FROM DC. VISITORS IN, PLEASANT VISIT. EXTENDED BLESSING, WILL FOLLOW NEEDED
--- NOTE | 2018-08-08 14:23 | NUR ---
Pt resting supine in bed watching tv. NG tube continues on low intermittent suction. pt denies needs and appears to be tolorating tx well. call light and h20 in reach.
--- NOTE | 2018-08-08 14:41 | NUR ---
THIS SUPERVISOR BEET END ASSISTED PATIENT UP TO BATHROOM AND BACK TO BED. PATIENT REFUSED TO WEAR SCDS, RN NOTIFIED, PATIENT EDUCATED ON USES OF SCDS. CALL LIGHT IN REACH, FRESH ICE CHIPS AT BEDSIDE. NO OTHER NEEDS AT THIS TIME.
--- NOTE | 2018-08-08 16:35 | NUR ---
In to answer call light, pt concerned that her ng tube wasn't plugged into the wall. Pt resting in bed with hob elevated. Pt denies pain, sob or nausea. NG tube verified to be on low intermittent wall suction and all connections verified to be secured. Pt deneis furhter concerns or requests and states she is comfortable. call ligth and moistened toothettes in reach.
--- NOTE | 2018-08-08 16:57 | NUR ---
PT STATES SHE IS GOING TO BE RETURNING HOME AGAIN UPON DC, SHE STATES SHE IS VERY INDEPENDENT AND WANTS TO CONT THAT WAY, SHE HAS 3 DAUGHTERS THAT LIVE IN [facility].
--- NOTE | 2018-08-08 17:05 | NUR ---
pt resting supine in bed states pain has increased to 8/10 to her abd and up to throat. IV opiod administered. call light and h20 in reach. Pt placed on pulse ox and given incentive spirometer and agrees to use 10x per hour while awake. Pt was educated on is use. family at bedside and agrees to use call light if cpox beeping.
--- NOTE | 2018-08-08 18:32 | NUR ---
PT REPORTS PERSISTING PAIN OF 8/10 TO ABD AND THROAT. M D NOTIFIED OF PT'S PAIN LEVEL ADMN THAT PT REFUSES SCD'S. NEW ORDER FOR DILAUDID 0.5MG W14GSHS IV PRN PAIN RECEIVED.
--- NOTE | 2018-08-08 19:10 | NUR ---
notified of low urine output. new order for lr bolus 500mls received. Report given to DEEJAY Kay.
--- NOTE | 2018-08-08 19:21 | HP ---
[facility] [address] [place], [place] [address] Signed ADMISSION DATE: 08/08/2018 OBSERVATIONAL ADMIT REASON FOR ADMISSION: Small bowel obstruction, probable anastomotic edema. HISTORY OF PRESENT ILLNESS: This 87-year-old white woman was operated on by me emergently on July 31, 2018 for segmental volvulus related to an adhesion. Segmental bowel resection with krhd-zv-[id number] functional end-to-end anastomosis was accomplished. She had a very prompt and rapid recovery, and was discharged to home on August 03, 2018. She has been doing well at home until last night, whereupon she had epigastric pain with symptoms suggestive of her prior obstructive process. She presented to the emergency room, where she was evaluated by Dr. Santiago and a plain abdominal x-ray showed signs of bowel obstruction. A CT scan was subsequently performed confirming bowel obstruction likely at the site of her anastomosis. She is admitted for further evaluation and care at this time. PAST MEDICAL HISTORY: Surprisingly unremarkable despite her advanced age. PAST SURGICAL HISTORY: Her recent operation was the first abdominal surgery that she has had. SOCIAL HISTORY: She is . She has adult grown daughters who attend to her. She is accompanied by a family friend, Maranda Flores. REVIEW OF SYSTEMS: She has had some vomiting, not much. She feels "acid" in the stomach. She denies any shortness of breath or chest pain. PHYSICAL EXAMINATION: GENERAL: Pleasant white woman who does not look systemically toxic. HEENT: Mucous membranes are reasonably moist. Trachea is midline. CHEST: Shows normal respiratory excursion. ABDOMEN: Surprisingly nondistended. It is not particularly focally tender. Incision is healing well. EXTREMITIES: Show no clubbing, cyanosis, or edema. Electronically Signed By: BRIAN BEGUM MD 08/08/18 1921 PATIENT NAME: ARNAV HERNANDEZ HISTORY AND PHYSICAL DATE OF : 34 REPORT #: [id number] PHYSICIAN: BRIAN BEGUM MD PCP: ÁLVARO FORD DO REPORT IS CONFIDENTIAL AND NOT TO BE RELEASED WITHOUT AUTHORIZATION [facility] [address] [place], [place] [address] Signed LABORATORY DATA: White count is 6.0, hematocrit 37.4, and platelets 209,000. Chem profile essentially normal. Glucose 123, albumin 3.2, and lipase 22. Urinalysis pending. I have reviewed her KUB and her CT scan. ASSESSMENT: She appears to have obstruction at the anastomosis. This was a widely patent anastomosis and I suspect the reason for this is brando-anastomotic edema rather than stricture or other problem. At this point, nasogastric tube for decompression as well as intravenous fluids and bowel rest would be appropriate. This may resolve promptly, if not then operative intervention will be necessary. We discussed this in detail and she understands and agrees. MD CELE Cruz/ARIEL /[id number] Copies: ~ Electronically Signed By: BRIAN BEGUM MD 08/08/18 1921 PATIENT NAME: ARNAV HERNANDEZ HISTORY AND PHYSICAL DATE OF : 34 REPORT #: [id number] PHYSICIAN: BRIAN BEGUM MD PCP: ÁLVARO FORD DO REPORT IS CONFIDENTIAL AND NOT TO BE RELEASED WITHOUT AUTHORIZATION
--- NOTE | 2018-08-08 19:25 | NUR ---
[facility]. PT REPORTS 6/10 PAIN, BUT DESCRIBES PAIN "GOOD 6/10 PAIN". PT DENIES NEEDS AT THIS TIME, CALL LIGHT IN REACH. NG TUBE IN PLACE TO LOW INTERMITTENT SUCTION. IV FLUIDS INFUSING PER MD ORDERS, SITE WNL.
--- NOTE | 2018-08-08 20:03 | NUR ---
ASSESSMENT COMPLETE, SCHEDULED MEDS GIVEN (SEE EMAR). VSS AND I&O'S RECORDED. 2LNC IN PLACE WITH CPOX, HR AND O2 WNL. PT A/OX4, RATES PAIN 6/10, BUT DESCRIBES "A GOOD 6/10, BETTER THAN IT WAS". PT DENIES FURTHER NEEDS. LR BOLUS INFUSING, SITE WNL. INCISION SITE WELL APPROXIMATED, OPEN TO AIR. DAUGHTER IN ROOM. PT DENIES FURTHER NEEDS, CALL LIGHT IN REACH.
--- NOTE | 2018-08-08 23:00 | NUR ---
PT RESTING IN BED, RR EVEN AND UNLABORED. 2L NC IN PLACE, CPOX NOTED, 02 SAT AND HR WNL. NG TUBE IN PLACE, LOW CONTINUOUS SUCTION. CALL LIGHT IN REACH.
--- NOTE | 2018-08-09 05:51 | NUR ---
VITALS AND I&OS DONE AND CHARTED. HELPED PT TO THE BSC AND BACK TO BED. ICE CHIPS GIVEN. LET DEEJAY XIONG KNOW OF LOW OUTPUT 100MM LAST FOUR HRS. BEDSIDE TABLE AND CALL LIGHT IN REACH.
--- NOTE | 2018-08-09 06:00 | NUR ---
ASSESSMENT COMPLETE. NO NEW CONCERNS. PT A/OX4, RATES PAIN 3/10, DENIES NEED FOR PAIN MEDICATION AT THIS TIME. NG TUBE TO LOW INTERMITTENT SUCTION IN PLACE. VSS. INCISION SITE WELL APPROXIMATED AND OPEN TO AIR. CALL LIGHT IN REACH.
--- NOTE | 2018-08-09 06:02 | NUR ---
PT HAD A GRIS, SLEPT FOR MOST OF THE SHIFT. PT A/OX4, PAIN CONTROLLED WITH PRN PAIN MEDICATION. IV FLUIDS INFUSING, SITE WNL. PT SBA W/ AMBULATION, VOIDING BORDERLINE QS UO. DR BEGUM AWARE. PT NPO, WITH ICE CHIPS FOR COMFORT. BOWEL TONES ACTIVE, INCISION SITE WELL APPROXIMATED AND OPEN TO AIR. NG TUBE ON LOW INTERMITTENT SUCTION, 180 OUTPUT THIS SHIFT. PT USES CALL LIGHT APPROPERIATELY.
--- NOTE | 2018-08-09 06:45 | NUR ---
new bag of iv fluids hung per md orders, iv site wnl. call light in reach.
--- NOTE | 2018-08-09 07:35 | NUR ---
in room receiving report from DEEJAY ndaiye. PT reports nasuea and begins to attemtp to vomit. NG tube suction increased and is now draining copious amounts of brown drainage. dr pace notified and new order received for iv zofran. pt also reports TREJO and abd pain. PRN dilaudid and prn toradol administered along with zofran. Call light and moistened toothetes in reach and family at bedside. Pt states she is feeling better. cpox in place and pt remains on 2lpnc. Pt denies further needs or concerns.
--- NOTE | 2018-08-09 07:45 | NUR ---
dr pace aware of pt's low uo. new orders to increase maintenance fluid of d5lr from 100 to 125 mls/hr. new order verified via telophone order read back. no additional orders, call light in reach.
--- NOTE | 2018-08-09 11:30 | NUR ---
PATIENT IN BED. DAUGHTER IN ROOM. PATIENT WALKS OUTSIDE THE ROOM THREE LAPS. PATIENT BACKS TO ROOM. PATIENT USING BATHROOM LINENS CHANGED. PATIENT BACKS TO BED. CALL LIGHT WITHIN REACH. NO OTHER NEEDS AT THIS TIME
--- NOTE | 2018-08-09 11:55 | NUR ---
PT IN BED, NG TUBE IN PLACE AND DAUGHTER AT BS. PT IS ALERT AND ORIENTED AND WELCOMED ME. FAMILY STATED THAT PT NEEDS TO REST, I EXTENDED A BLESSING, AND LET DEEJAY KWAN KNOW OF FAMILY'S WISHES FOR PT. WILL FOLLOW NEEDED
--- NOTE | 2018-08-09 12:08 | NUR ---
Pt resting supine in bed eyes closed and respirations even and unlabored pt alert to voice and states the back of her throat is bothering her and that the lozenges haven't really been helping mutch. Dr Bland notified and new order received for prn po throat spray to back of throat. Pt reports releif with administration.
--- NOTE | 2018-08-09 12:14 | NUR ---
PT STATES "AM I GOING TO BE ABLE TO EAT SOMETHING SOON? i HAVENT EATEN ANYTHING IN 4 DAYS. I AM NOT HUNGRY BUT JUST THOUIGHT THAT WAS A LONG TIME TO GO BETWEEN MEALS." PT ASSURED THAT SHE IS RECEIVING IV FLUIDS THAT ARE ASSISTING IN KEEPING HER ELECTROLYTES AND BLOOD SUGAR IN NORMAL LIMITS AND THAT SOON HER SBO RESOLVES ITSELF WE WILL BE ABLE TO CHANGE HER DIET SO THAT SHE CAN BEGIN TO EAT AGAIN. PT GIVEN THROAT LOZENGE PER HER REQUEST. NO FURHTER NEEDS/COCNERNS VOICED. NG TUBE CONTINUES TO LOW INTERMITTANT SUCTION. MAINTENANCE FLUIDS INFUSING. CALL LIGHT AND H20 IN REACH.
--- NOTE | 2018-08-09 13:22 | NUR ---
PATIENT IN BED WATCHING TV. VITAL SIGNS AND I&O DONE. CALL LIGHT WITHIN REACH. NO OTHER NEEDS AT THIS TIME
--- NOTE | 2018-08-09 15:12 | NUR ---
Pt resting supine in bed back from restroom. Pt voided 50mls of concentrated yellow urine. Dr. Bland notified of low urine output and VORB for 1000ml lr bolus over 1 hr. Fluids now administering through iv. no needs voiced and family at bedside. Call light and moistened toothettes in reach.
--- NOTE | 2018-08-09 16:48 | NUR ---
In to see patient. Patient resting supine in bed with hob elevated. Call light and moistened toothettes in reach. Pt denies needs. Family remains at bedside and ng tube remains hooked up to low intermittant suction.
--- NOTE | 2018-08-09 17:19 | NUR ---
NG collection container replaced. 500mls of brown gastric liquid emptied at this time and documented in i/o's. Pt denies any flatus or bm yet. Pt states she is comfortable all things considered and states the throat spray is helping with her sore throat. No needs voiced. call light and h20 in reach.
--- NOTE | 2018-08-09 17:53 | NUR ---
PATIENT SITTING UP IN BED PLAYING CARDS WITH HER DAUGHTER. PATIENT USES [employer] COMMODE. ONE PERSON ASSISTING. PATIENT BACKS TO BED. VITAL SIGNS AND I&O DONE. CALL LIGHT WITHIN REACH. NO OTHER NEEDS AT THIS TIME
--- NOTE | 2018-08-09 19:00 | NUR ---
SHIFT REPORT RECEIVED FROM OSITO KWAN. PT AWAKE AND A/OX4. IV FLUIDS INFUSING PER MD ORDERS, SITE WNL. NG TUBE TO LOW INTERMITTENT SUCTION. PT DENIES NEEDS ATT HIS TIME. CALL LIGHT IN REACH. FAMILY IN ROOM.
--- NOTE | 2018-08-09 19:35 | NUR ---
BEDSIDE REPORT GIVEN TO DEEJAY XIONG. PT REPORTS PALPABLE MASS TO ABD ABOVE PAST SURGICAL INCISION SITE. MASS WAS PALPABLE APPROX SIZE OF GOLFBALL. NO DRAINAGE NOTED TO NG TUBE FOR PAST 2 HOURS SO NG TUBE WAS FLUSHED WITH 30MLS OF WARM WATER WITH GOOD RETURN, NG TUBE PATENT. BT'S NOW HYPERACTIVE AND PT WAS RECENTLY ABLE TO PASS FLATUS. AWARE OF FINDINGS. NEW ORDER RECEIVED FOR LATERAL XRAY, CHARGE NURSE AWARE. MD WAS ALSO NOTIFIED OF PT'S PERSISTING LOW URINE OUTPUT. NO NEW ORDERS.
--- NOTE | 2018-08-09 21:30 | NUR ---
ASSESSMENT COMPLETE. PT A/OX4, RATES PAIN 10/10 IN NASAL PASSAGES RELATED TO NG TUBE. PRN DILAUDID GIVEN (SEE EMAR). PT PULLED OUT NG TUBE APPROX.1-2INCHES FROM ORIGINAL PLACEMENT. PT STATES, "IF YOU DON'T TAKE THIS THING OUT, THEN I WILL". 25-50 MLS IN NG TUBE CANASTER SINCE CANASTER WAS REPLACED BY DAYSHIFT AT 1700. DR BEGUM AWARE. VERBAL ORDERS READ BACK FROM DR BEGUM TO TRY AND PUSH NG TUBE TO ORIGINAL PLACEMENT IF PT TOLERATES. IF ABLE TO PUSH NG TUBE TO ORIGINAL PLACEMENT, NO ORDERS FOR IMAGING TO CONFIRM PLACEMENT NEEDED. IF PT REFUSES, THEN OKAY TO LEAVE NG TUBE IN CURRENT POSITION PER DR BEGUM. IF PT REMOVES NG TUB, OKAY TO LEAVE NG TUBE OUT PER DR BEGUM. NO FURTHER ORDERS.
--- NOTE | 2018-08-09 22:30 | NUR ---
SCHEDULED MEDICATION GIVEN (SEE EMAR). PRN ATIVAN GIVEN FOR ANXIETY RELATED TO NG TUBE. WILL ATTEMPT TO RETURN NG TUBE TO ORIGINAL PLACEMENT FOLLOWING EFFECT OF IV ATIVAN. NO ADDITIONAL NEEDS AT THIS TIME. PT RESTING, EYES CLOSED. RR EVEN AND UNLABORED. PT APPEARS UNCOMFORTBALE RELATED TO NG TUBE PLACEMENT. PT STATED, "I DON'T WANT THIS THING IN MY NOSE ANYMORE. IT HURTS.". DAUGHTER IN ROOM. CALL LIGHT IN REACH.
--- NOTE | 2018-08-09 23:15 | NUR ---
IN ROOM TO CHECK ON PT. PT RESTING IN BED, EYES CLOSED, RR EVEN AND UNLABORED. NG TUBE OUT OF NARE AND ON FLOOR. WHEN ASKED WHAT HAPPENED TO NG TUBE, PT STATED, "I TOOK IT OUT, I FEEL A LOT BETTER NOW. I'M SORRY". PT ASSESSED BY THIS RN. BOWEL TONES HYPERACTIVE, PT DENIES NAUSEA. NO BLEEDING OR DRAINAGE NOTED IN ORAL OR NASAL PASSAGES. LUNG SOUNDS CLEAR. PT DENIES PAIN, SOB. BONE CRUSHER AWARE. DAUGHTER ALSO INFORMED PER REQUEST. CPOX AND O2 OFF OF PT. NEW O2 SAT PROBE IAND 2LNC IN PLACE. O2 SAT MIED TO UPPER 90'S, HR WNL. PT DENIES FURTHER NEEDS, CALL LIGHT IN REACH.
--- NOTE | 2018-08-09 23:55 | NUR ---
DR BEGUM AWARE OF PT'S REMOVAL OF NG TUBE. NO NEW ORDERS.
--- NOTE | 2018-08-10 00:14 | NUR ---
PT RESTING IN BED, APPEARS COMFORTABLE, RR WNL. IV FLUIDS INFUSING, SITE WNL. CALL LIGHT IN REACH.
--- NOTE | 2018-08-10 01:38 | NUR ---
NEW BAG OF IV FLUIDS INFUSING PER MD ORDERS, SITE WNL.
--- NOTE | 2018-08-10 03:10 | NUR ---
THIS RN IN ROOM TO ROUND ON PT. LIVESTOCK EXHIBITOR IN ROOM WITH PT. INFORMED BY LIVESTOCK EXHIBITOR THAT PT HAD WALKED TO NURSES STATION BECAUSE PT HAD "HEARD WATER IN THE BASEMENT". PT HAD DISCONNECTED SELF FROM IV PUMP AND CPOX. PT RECONNECTED TO IV PUMP, IV SITE WNL, PATENT, AND FLUSHED EASILY. O2 MONITOR IN PLACE, O2 SAT WITH 2LNC AND HR WNL. NO FURTHER NEEDS, CALL LIGHT IN REACH.
--- NOTE | 2018-08-10 03:15 | NUR ---
ASSESSMENT COMPLETE. NO NEW CONCERNS. PT A/OX4, DENIES PAIN APPEARS COMFORTABLE. INCISION SITE WELL APPROXIMATED, OPEN TO AIR AND DRY. O2 SAT WNL, NC TITRATED DOWN TO 1LNC, MAINTAINING AT UPPER 90'S. NO FURTHER NEEDS, CALL LIGHT IN REACH.
--- NOTE | 2018-08-10 05:45 | NUR ---
SPOKE TO PT'S DAUGHTER DESTINY REGARDING PT'S UPDATE DURING NIGHT. ALL QUESTIONS ANSWERED.
--- NOTE | 2018-08-10 06:33 | NUR ---
PT A/OX4, PAIN CONTROLLED WITH PRN PAIN MEDICATIONS. PT PULLED OUT NG TUBE DURING SHIFT SHY AWARE. BOWEL TONES HYPERACTIVE, PT DENIES NAUSEA, NPO AT THIS TIME WITH EXCEPTION OF ICE CHIPS FOR COMFORT. PT 1PA W/ AMBULATION, CAN BE IMPATIENT AT TIMES, BED ALARM ON. IV FLUIDS INFUSING, SITE WNL. VSS, PT ON CPOX.
--- NOTE | 2018-08-10 07:47 | NUR ---
RECIEVED BEDSIDE REPORT FROM DEEJAY XIONG. PT SLEEPING SOUNDLY WITH 1L O2 ONLY WHILE SLEEPING SHE DESATED WITH SLEEP. INCISION FROM 07/31/18 IS C/D/I, DRY CAN TENDER. NO NG TUBE PLACED AT THIS TIME, MD AWARE. PASSING GAS, NO NAUSEA, NO PAIN. XRAY ORDERED. PATIENT NPO. BED ALARM ON.
--- NOTE | 2018-08-10 09:26 | NUR ---
PATIENT RESTING IN BED. PATIENT WALKS TO BATHROOM TO TAKE A SHOWER. PATIENT TAKES A SHOWER. ONE PERSON ASSISTING. PATIENT BACKS TO BED. VITAL SIGNS AND I&O DONE. CALL LIGHT WITHIN REACH. NO OTHER NEEDS AT THIS TIME
--- NOTE | 2018-08-10 11:58 | NUR ---
DR BEGUM GAVE VERBAL ORDER OF "YES, GIVE 20MG AT HS ONLY". ORDER ENTERED.
--- NOTE | 2018-08-10 12:06 | NUR ---
UP, AMBULATING IN HALLS WITH DAUGHTER. PT STATED SHE PULLED THE NG TUBE OUT LAST NIGHT."I JUST COULDN'T TAKE IT ANYMORE". PLEASANT VISIT, WILL CONTINUE TO FOLLOW
--- NOTE | 2018-08-10 13:37 | NUR ---
PATIENT IN BED WATCHING TV. DAUGHTER IN ROOM. VITAL SIGNS AND I&O DONE. CALL LIGHT WITHIN REACH. NO OTHER NEEDS AT THIS TIME
--- NOTE | 2018-08-10 14:05 | NUR ---
PT'S DAUGHTER STEPPED OUT OF THE ROOM. IF DR BEGUM ROUNDS, SHE WOULD LIKE A RN TO ROUND WITH HIM.
--- NOTE | 2018-08-10 14:22 | NUR ---
PT APPEARED IN HER DOORWAY, REQUESTING ASSISTANCE TO THE BATHROOM. RN ASSISTED TO THE BATHROOM. ON THE WAY BACK TO HER BED, PT STATED TO THE RN THAT SHE "WAS JUST ABOUT READY TO GO TO [place] TO FIND A SURGEON TO TAKE CARE OF ME". RN ASKED WHAT SHE MEANT, PT STATED "DR BEGUM HASN'T TAKEN CARE OF ME. HOW MANY PEOPLE ARE AHEAD OF ME?" RN ATTEMPTED SERVICE RECOVERY, EXPLAINING DR BEGUM HAS BEEN EXTREMELY BUSY. PT STATED "THEN HE SHOULDN'T HAVE TAKEN ME ON. HE IS A FAMILY FRIEND SO IT IS EVEN WORSE." RN CONTINUED SERVICE RECOVERY. RN NOTIFIED BECKIE, SANDWICH MAKER. BECKIE, SANDWICH MAKER DID SERVICE RECOVERY. WE WILL ESCORT DR BEGUM TO HER ROOM FIRST WHEN DR BEGUM RETURNS TO THE FLOOR.
--- NOTE | 2018-08-10 14:48 | NUR ---
DR BGEUM HAS ROUNDED WITH PT. HER DAUGHTER IS IN THE ROOM AT THIS TIME. ADVISED PT'S DAUGHTER OF PT CONCERNS. DAUGHTER STATED THAT IS ANXIETY.
--- NOTE | 2018-08-10 16:48 | NUR ---
PT UP WALKING THE GAY WITH HER DAUGHTER. TOLERATING WELL. PT IS VERY HAPPY WITH THE CARE RECIEVED.
--- NOTE | 2018-08-10 17:20 | NUR ---
PATIENT RESTING IN BED. DAUGHTER IN ROOM. VITAL SIGNS AND I&O DONE. CALL LIGHT WITHIN REACH. NO OTHER NEEDS AT THIS TIME
--- NOTE | 2018-08-10 17:39 | NUR ---
PT UP AMBULATING HALLS MULTIPLE TIMES. PT UP TO BATHROOM WITH FAMILY. USES CALL LIGHT APROPRIATELY. NPO, DENIES NAUSEA/VOMITING. REMOVED NG TUBE OVERNIGHT, REFUSES TO HAVE IT REPLACED. NO PAIN. PT BECAME FRUSTRATED WAITING FOR DR BEGUM TO ROUND, BUT IS HAPPY WITH CARE AT THIS TIME. FAMILY AT BEDSIDE MAJORITY OF THE DAY. ICE CHIPS FOR COMFORT.
--- NOTE | 2018-08-10 19:15 | NUR ---
BEDSIDE REPORT RECEIVED FROM OFFGOING RN. PT RESTING IN BED. DENIES NEEDS AT THIS TIME. CALL LIGHT WITHIN REACH.
--- NOTE | 2018-08-10 21:11 | NUR ---
PATIENT UP TO THE REST ROOM STBA 1P WITH 4WW TO AND FROM BED. PATIENT BACK TO BED, CALL LIGHT IN REACH, ICE CHIPS GIVEN.
--- NOTE | 2018-08-10 21:12 | NUR ---
CHARGE NURSE ROUNDING NOTE: RESTING, AWAKES EASILY, NO C/O PAIN. CONTINUES ON NPO DIET STATUS. NO C/O N/V AT THIS TIME. CALL LIGHT AT BEDSIDE
--- NOTE | 2018-08-10 23:06 | NUR ---
PT ASSESSMENT COMPLETE. PT DENIES PAIN, NAUSEA, SOB. PT STATES THAT SHE IS SLIGHTLY ANXIOUS, STATES SHE IS UNABLE TO SLEEP. PRN ATIVAN ADMINISTERED. LUNG SOUNDS WITH CRACKLES TO RIGHT LOWER LOBE, DOES NOT CLEAR WITH COUGH. OLD INCISION TO MIDLINE, WELL APPROXIMATED. BT'S ACTIVE. PT DENIES ABD TENDERNESS. GENERALIZED EDEMA TO BLE'S. PT DENIES FURTHER NEEDS. CALL LIGHT WITHIN REACH. PT AGREES TO USE CALL LIGHT FOR NEEDS.
--- NOTE | 2018-08-11 01:09 | NUR ---
PT UTILIZES CALL LIGHT, REQUESTS WARM BLANKET. PROVIDED. PT DENIES FURTHER NEEDS. CALL LIGHT WITHIN REACH.
--- NOTE | 2018-08-11 02:50 | NUR ---
PT ASSESSMENT COMPLETE. PT RESTING IN BED WITH EYES CLOSED. WAKES EASILY WHEN DEVICE PROCESSING ENGINEER ENTERS ROOM. PT DENIES PAIN, NAUSEA, SOB. LUNG SOUNDS CLEAR AT THIS TIME. BT'S ACTIVE. PT REPORTS PASSING FLATUS DURING ASSESSMENT. DENIES ABD TENDERNESS. INCISION TO MIDLINE ABD WELL APROXIMATED. PT DENIES NEEDS AT THIS TIME. CALL LIGHT IN REACH. ROOM IN VIEW OF RN STATION.
--- NOTE | 2018-08-11 06:02 | NUR ---
PT ANXIOUS EARLY IN SHIFT. PRN ATIVAN ADMINISTERED. PT SLEPT WELL AFTER. NO REPORTS OF PAIN, NAUSEA, OR SOB. INCISION FROM PREVIOUS SURGERY WELL APPROXIMATED. BT'S ACTIVE. ABD NON-TENDER. PT PASSING FLATUS. LG FORMED BM LATE THIS SHIFT. UO QS. JANY. NATHAN @ 125. NPO WITH SIPS. KUB THIS AM.
--- NOTE | 2018-08-11 07:48 | NUR ---
PT HAD ANOTHER BOWEL MOVEMENT, LARGE, LIQUID. PT LEAKED SMALL AMT ON BED, SO RN CHANGED LINENS. PT UP TO CHAIR. DAUGHTER IN ROOM. PT WILL WALK IN HALLS SHORTLY.
--- NOTE | 2018-08-11 10:15 | NUR ---
PATIENT IN BED, CURRENTLY NPO, HAD A VISITOR (DAUGHTER), NEEDED NO OTHER ASSISTANCE
--- NOTE | 2018-08-11 11:09 | NUR ---
ROUNDED WITH DR BEGUM. DIET UPGRADED TO FULL LIQUID "ANYTHING POURABLE". PT REQUESTED CHICKEN BROTH. GIVEN, PT STATED IT TASTES GOOD. HEADACHE RESOLVED.
--- NOTE | 2018-08-11 17:47 | NUR ---
PT IS FINISHING [place] FOR DINNER. REPORTS NO NAUSEA, NO VOMITING, NO INCREASED PAIN. IVF RUNNING.
--- NOTE | 2018-08-11 19:30 | NUR ---
BEDSIDE REPORT RECEIVED FROM OFFGOING RN. PT LYING IN BED VISITING WITH DAUGHTER AT BEDSIDE. NEEDS DENIED AT THIS TIME. CALL LIGHT WITHIN REACH.
--- NOTE | 2018-08-11 22:08 | NUR ---
PT ASSESSMENT COMPLETE. PT DENIES PAIN, NAUSEA, OR SOB. BT'S ACTIVE, ABD NONTENDER. GENERALIZED EDEMEA TO BLE'S. PT REQUESTS ICE CHIPS, PROVIDED. PT DENIES OTHER NEEDS. CALL LIGHT IN REACH. PT IMPULSIVE, GETS UP TO THE BATHROOM UNAIDED, BED ALARM ACTIVE.
--- NOTE | 2018-08-11 23:20 | NUR ---
V/S AND I&O DONE AND CHARTED. 1 PA/ SBA TO THE BATHROOM AND BACK TO BED. SIDE TABLE AND CALL LIGHT WITHIN REACH. BED ALARM ON.
--- NOTE | 2018-08-12 00:26 | NUR ---
PT UTILIZES CALL LIGHT TO USE THE BATHROOM. PT TO BATHROOM AND BACK TO BED X 2 DUE TO LOOSE STOOL. PT TOLERATED WELL. DENIES FURTHER NEEDS. BEDALARM ACTIVE. CALL LIGHT IN REACH.
--- NOTE | 2018-08-12 02:00 | NUR ---
PT UTILIZES CALL LIGHT REQUESTS TO USE THE BATHROOM. PT UP AND BACK TO BED WITH ASSISTANCE. TOLERATED WELL. DENIES FURTHER NEEDS. BED ALARM IN PLACE. CALL LIGHT WITHIN REACH.
--- NOTE | 2018-08-12 03:38 | NUR ---
PT ASSESSMENT COMPLETE. PT DENIES PAIN, NAUSEA, AND SOB. ASSESSMENT UNCHANGED FROM PREVIOUS. PT CONTINUES TO VOID FREQUENTLY. BED ALARM IN PLACE FOR IMPULSIVITIY. PT USING CALL LIGHT FOR MOST NEEDS. CALL LIGHT REMAINS WITHIN REACH. PT DENIES FURTHER NEEDS AT THIS TIME.
--- NOTE | 2018-08-12 07:24 | NUR ---
RECIEVED BEDSIDE REPORT FROM DEEJAY GAMEZ. PT SLEEPING AT THIS TIME. IVF INFUSING, BREATHING EVEN AND UNLABORED. PT UP MULTIPLE TIMES TO VOID AND SMALL, LOOSE BM. PASSING GAS.
--- NOTE | 2018-08-12 09:05 | NUR ---
PT UP WALKING WITH HER DAUGHTER. REPORTS A MILD HEADACHE AND BACKACHE, BUT STATES FEELING BETTER AFTER AMBULATING. PT HAD CONCERNS ABOUT HER DIET, SHE GOT OATMEAL FOR BREAKFAST AND WAS WORRIED ABOUT HER TRAY. RN ASSURED HER THAT HER TRAY WAS APROPRIATE.
--- NOTE | 2018-08-12 13:36 | NUR ---
Patient in bed with daughter watching a movie, in room
--- NOTE | 2018-08-12 14:23 | NUR ---
RN GAVE PT A LIST OF FOOD IDEAS THAT ARE "POURABLE" AND LIQUID. PT VERBALIZED UNDERSTANDING TO AVOID "CHUNKY" OR SPICY SOUPS FOR NOW AND STICK TO THE BASIC CREAMY AND PLAIN SOUPS.
--- NOTE | 2018-08-12 18:03 | NUR ---
PT AMBULATING WELL. IVF DISCONTINUED, IV SALINE LOCKED AT THIS TIME. ENCOURAGE PO INTAKE. PT REQUESTED LIST OF OK FOODS- RN GAVE HER A GENERAL LIST OF FULL LIQUID FOODS. CAUTIONED PT ON "CHUNKY" OR SPICY FOODS. PT TOLERATING ORAL INTAKE WELL. VOIDING WELL. FAMILY AT BEDSIDE.
--- NOTE | 2018-08-12 19:00 | NUR ---
BEDSIDE REPORT RECEIVED FROM OFFGOING RN. PT PLAYING CRIBBAGE WITH HER DAUGHTER. BOTH PARTICIPATE IN REPORT. NEEDS DENIED AT THIS TIME. CALL LIGHT IN REACH.
--- NOTE | 2018-08-12 19:52 | NUR ---
PATIENT CALLED TO USE THE BATHROOM. 1 SBA. PATIENT IS BACK IN BED. WATER AND ICE CHIPS GIVEN. CALL LIGHT WITHIN REACH.
--- NOTE | 2018-08-12 22:04 | NUR ---
PT ASSESSMENT COMPLETE. PT DENIES PAIN, NAUSEA, AND SOB. BT'S ACTIVE, PT REPORTS CONTINUING TO PASS FLATUS. PT ASSISTED TO AMBULATE TO BATHROOM AND BACK TO BED, TOLERATED WELL. BED ALARM ACTIVATED FOR TIMES OF IMPULSIVITY. PT DENIES FURTHER NEEDS AT THIS TIME. CALL LIGHT IN REACH.
--- NOTE | 2018-08-12 23:40 | NUR ---
V/S DONE AND CHARTED. SBA TO THE BATHROOM AND BACK TO BED. BED ALARM ON.
--- NOTE | 2018-08-13 00:30 | NUR ---
PT RESTING IN BED WITH EYES CLOSED. APPEARS TO BE SLEEPING. DOES NOT WAKE WHILE WRTIER IN DOORWAY. BED ALARM ACTIVE. CALL LIGHT WITHIN REACH.
--- NOTE | 2018-08-13 03:16 | NUR ---
PT ASSESSMENT COMPLETE. PT RESTING IN BED, WAKES EASILY WHEN FINISHED GOODS PLANNER ENTERS THE ROOM. PT REPORTS THAT SHE HAS BEEN PASSING GAS AND IS BEGINNING TO FEEL LIKE SHE NEEDS TO HAVE ANOTHER BM. PT DENIES PAIN, NAUSEA, OR SOB. BT'S ACTIVE, ABD NON TENDER. PT DENIES NEEDS AT THIS TIME. CALL LIGHT IN REACH. BED ALARM ACTIVE.
--- NOTE | 2018-08-13 06:00 | NUR ---
PT RESTED WELL THIS SHIFT. NO C/O PAIN, NAUSEA, OR SOB. BT'S ACTIVE, ABD NONTENDER. PREVIOUS SURGICAL SITE AT MIDLINE WELL APPROXIMATED. PT CONTINUES TO PASS FLATUS, NO BM THIS SHIFT. SBA. IV SL. UO QS. PT IMPULSIVE, BED ALARM IN PLACE.
--- NOTE | 2018-08-13 08:08 | NUR ---
PT REPORTS FEELING "PRETTY GOOD" THIS MORNING. SHE IS EXCITED TO HAVE HER DAUGHTER COME UP AND GO FOR A WALK. SHE CANCELED HER SOFT BOILED EGG FOR BREAKFAST CONCERNED ABOUT NAUSEA. SHE HAD HOT CHOCOLATE, WHICH "TASTED GREAT!".
--- NOTE | 2018-08-13 09:59 | NUR ---
PATIENT IN CHAIR DRESSED AND READY TO DC. IV TAKEN OUT UPON RN REQUEST. CALL LIGHT IN REACH. NO FURTHER NEEDS AT THIS TIME.
[2018-08-13] MEDS ORDERED: PREVACID 24HR15 MG PO (10:27)
--- NOTE | 2018-08-13 15:09 | NUR ---
LATE ENTRY FROM 10 AM: MET WITH PATIENT TO DISCUSS A FULL LIQUID DIET FOR HOME. ONE OF HER DAUGHTERS WAS THERE WELL. SHE WILL TAKE PATIENT HOME AND THE OTHER DAUGHTER WILL BE COMING TO HELP TAKE CARE OF PATIENT. EXPLAINED WHAT IS ALLOWED ON A FULL LIQUID DIET. ANSWERED THEIR QUESTIONS. ALSO PROVIDED A LOW-FIBER DIET HANDOUT FROM THE [facility] FOR WHEN HER DIET IS ADVANCED. PATIENT HATES HOT CEREAL. LIKES MILK TOAST, PASTA, FRUITS AND VEGGIES. SHE AND HER DAUGHTER HAVE GOOD UNDERSTANDING AND SHOULD DO FINE. MY NAME AND OFFICE # PROVIDED IN CASE FURTHER QUESTIONS ARISE.
--- NOTE | 2018-08-15 12:09 | DS ---
[facility] [address], [place] [address] Signed ADMISSION DATE: 08/08/2018 DISCHARGE DATE: 08/13/2018 REASON FOR ADMISSION: Small bowel obstruction (early postoperative). 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 Segmental bowel resection with [id number] functional end-to-end anastomosis was accomplished. She had a prompt and rapid recovery and discharged home on August 03. She had been doing well until the night prior to admission where she had epigastric pain and symptoms suggestive of prior obstructive process. She presented to the emergency room. She was evaluated by Dr. Santiago and a plain abdominal x-ray showed signs of bowel obstruction. A CT was performed confirming bowel obstruction likely at the site of her anastomosis. She was admitted for further evaluation and care. PERTINENT PHYSICAL EXAMINATION: GENERAL: Showed a pleasant white woman, who did not look systemically toxic. HEENT: Mucous membranes are moist. Trachea midline. CHEST: Clear. HEART: Regular without murmur. ABDOMEN: Surprisingly nondistended and not focally tender. Incision was healing well. No sign of hernia. LABORATORY DATA: White count was 6.0, hematocrit 37.4. Lipase 22. HOSPITAL COURSE: She was admitted and a nasogastric tube was placed, which did drain bilious fluid. The patient is noted to have fair amount of anxiety by her daughter and very low doses of Ativan were given as needed. She had retching and vomiting even with a nasogastric tube initially, but this improved. Abdominal x-rays were obtained for progress showing improvement. It was my suspicion that her anastomosis had edema rather than any sort of torsion or other problem. She refused a nasogastric tube. By August 10, 2018, it was removed and careful observation undertaken. She had no nausea or vomiting, was feeling much better. She did then have bowel movements. Serial abdominal x-ray showed still some distended loops of small bowel, but an improvement was noted. She was given clear liquids, which she tolerated Electronically Signed By: BRIAN BEGUM MD 08/15/18 1209 PATIENT NAME: ARNAV HERNANDEZ DISCHARGE SUMMARY DATE OF : 34 REPORT #: [id number] PHYSICIAN: BRIAN BEGUM MD PCP: ÁLVARO FORD DO REPORT IS CONFIDENTIAL AND NOT TO BE RELEASED WITHOUT AUTHORIZATION [facility] [address], [place] [address] Signed and additional liquids, which she tolerated well. Although, her plain abdominal x-ray is not perfect yet, it is certainly much better and clinically she is doing well. She strongly wishes to be discharged home. It is my expectation that the anastomotic edema is resolving and will continue to resolve over time. We plan to send her home with a liquid diet primarily to include Ensure or Boost or other high-protein liquids and to avoid solid food for the time being. She will see us back in a week or so. We will get an abdominal x-ray prior to her visit. If she has further problems, she will let us know and we will go from there. She may require an imaging study again, possibly small bowel follow-through. I think it is unlikely that she has any kind of volvulus, internal hernia, or other similar problem, more likely edema (resolving) at the anastomosis. DISCHARGE MEDICATIONS: Include: 1. Potassium chloride 10 mEq p.o. daily. 2. Folic acid one tablet p.o. daily. 3. Synthroid 100 mcg p.o. daily. 4. Losartan and hydrochlorothiazide 100/25 one p.o. daily. 5. Tylenol 325 mg tablets two tablets p.o. q.6 hours p.r.n. pain. 6. Lasix 20 mg daily for leg swelling. DISCHARGE DIAGNOSES: 1. Postoperative small bowel obstruction, likely related to anastomotic edema (resolving). 2. 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 3. Leg edema, for which Lasix was given. 4. Hypertension. 5. Hypothyroidism. Brian Begum MD /ELIAL /[id number] Electronically Signed By: BRIAN BEGUM MD 08/15/18 1209 PATIENT NAME: ARNAV HERNANDEZ DISCHARGE SUMMARY DATE OF : 34 REPORT #: [id number] PHYSICIAN: BRIAN BEGUM MD PCP: ÁLVARO FORD DO REPORT IS CONFIDENTIAL AND NOT TO BE RELEASED WITHOUT AUTHORIZATION [address] [address] Signed Copies: ~ Electronically Signed By: BRIAN BEGUM MD 08/15/18 1209 PATIENT NAME: ARNAV HERNANDEZ DISCHARGE SUMMARY DATE OF : 34 REPORT #: [id number] PHYSICIAN: BRIAN BEGUM MD PCP: ÁLVARO FORD DO REPORT IS CONFIDENTIAL AND NOT TO BE RELEASED WITHOUT AUTHORIZATION
== END 2018-08-13 10:52 | disposition home or self-care (01) ==
LOC: ED 04:19 → MS 04:20
PROVIDERS: ADMIT Surgery
DX: K91.30 Postprocedural intestinal obstruction, unspecified as to partial versus complete (principal); E03.9 Hypothyroidism, unspecified; I10 Essential (primary) hypertension; F41.9 Anxiety disorder, unspecified; R60.0 Localized edema; Y83.6 Removal of other organ (partial) (total) as the cause of abnormal reaction of the patient, or of later complication, without mention of misadventure at the time of the procedure; Z87.891 Personal history of nicotine dependence; Z88.5 Allergy status to narcotic agent; Z79.899 Other long term (current) drug therapy
CPT/HCPCS: 36415; 71045; 74018; 74019; 74022; 74177; 80053; 81001; 82247; 82465; 83615; 83690; 84100; 84478; 84550; 85025; 94762; 96361; 96372; 96374; 96375; 96376; 99285-25; G0378; J1170; J1644; J1885; J2060; J2405; J3010; J7120; Q9967

== ENCOUNTER 2018-12-11 21:07 | Emergency (ER) | payer MEDICARE, OTHER ==
[~2018-12-11] VITALS: Ht 165.1 cm; Wt 70.3 kg
[~2018-12-11 21:07] MED LIST changes: +FUROSEMIDE20 MG PO; +PREVACID 24HR15 MG PO
--- OUTSIDE RECORDS SUMMARY | 2018-12-11 21:10 | XMS ---
PreManage Notification: ARNAV HERNANDEZ Security Fitting Room Maintenance Mechanic Events No recent Security Events currently on file CRITERIA MET - [facility] - Has Care Guidelines CARE PROVIDERS ÁLVARO FORD Internal Medicine 08/08/2018-Current PHONE: Unknown Juventino Grande MD PHONE: Unknown Nathan has no Care Guidelines for this patient. Care History Medical/Surgical 08/08/2018 [facility] - Patient is currently established with [facility]. If patient is seen in the ED during business hours. Please contact CHWs at [facility]. Care Recommendation: This patient has had 5 or more Emergency Department visits in the last 12 months.\T\nbsp; Patient requires education on the scope and purpose of the ED as an acute care provider not a Primary Care Provider and should not be utilized for chronic conditions.\T\nbsp; These are guidelines and the provider should exercise clinical judgment when providing care. E.D. VISIT COUNT (12 MO.) 3 [facility] TOTAL 3 NOTE: Visits indicate total known visits. ED/UCC VISIT TRACKING (12 MO.) 12/11/2018 21:08 [facility] TYPE: Emergency COMPLAINT: - ABD PAIN 08/08/2018 04:19 [facility] TYPE: Emergency COMPLAINT: - VOMITING,ABD PAIN 07/31/2018 05:14 [facility] TYPE: Emergency COMPLAINT: - ABD PAIN,VOMITING INPATIENT VISIT TRACKING (12 MO.) 08/08/2018 04:20 [facility] TYPE: Observation COMPLAINT: - SMALL BOWEL OBST DIAGNOSES: - Anxiety disorder, unspecified - Essential (primary) hypertension - Allergy status to narcotic agent status - Postprocedural intestinal obstruction, unspecified as to partial versus complete - Other care home (current) drug therapy - Hypothyroidism, unspecified - Unspecified abdominal pain - Personal history of nicotine dependence - Localized edema - Removal of other organ (partial) (total) as the cause of abnormal reaction of the patient, or of later complication, without mention of misadventure at the time of the procedure 07/31/2018 09:[address] [facility] [place] TYPE: Medical Surgical COMPLAINT: - SMALL [...] mass index (BMI) 27.0-27.9, adult - Other care home (current) drug therapy - Allergy status to narcotic agent status - Other care home (current) drug therapy - Intestinal adhesions [bands], unspecified as to partial versus complete obstruction - Vascular disorder of intestine, unspecified - Obesity, unspecified - Hypothyroidism, unspecified - Personal history of nicotine dependence [email or web address]
[2018-12-11] MEDS ORDERED: MOBIC15 MG PO (22:17)
[2018-12-12] MEDS ORDERED: MACROBID 100 M100 MG PO (00:34)
== END 2018-12-12 00:45 | disposition home or self-care (01) ==
LOC: ED 21:07
DX: N39.0 Urinary tract infection, site not specified (principal); I10 Essential (primary) hypertension; Z87.891 Personal history of nicotine dependence; Z88.1 Allergy status to other antibiotic agents; Z88.5 Allergy status to narcotic agent; Z88.8 Allergy status to other drugs, medicaments and biological substances; Z79.899 Other long term (current) drug therapy
CPT/HCPCS: 74022; 74177; 80053; 81001; 83690; 85025; 87088; 99284-25; J1170; J2405; J7030; Q9967

== ENCOUNTER 2020-09-28 08:20 | Emergency (ER) | payer MEDICARE, OTHER ==
[~2020-09-28] VITALS: Ht 165.1 cm; Wt 70.3 kg
[~2020-09-28 08:20] MED LIST changes: +MACROBID 100 M100 MG PO; +MOBIC15 MG PO
[2020-09-28] MEDS ORDERED: STOOL SOFTENER100 MG PO (08:37)
[2020-09-28] MEDS ORDERED: PREVACID15 MG PO (08:37)
[2020-09-28] MEDS ORDERED: ENULOSE10 GM/15 M PO (09:21)
== END 2020-09-28 10:44 | disposition home or self-care (01) ==
LOC: ED 08:20
DX: K59.00 Constipation, unspecified (principal); E87.1 Hypo-osmolality and hyponatremia; I12.9 Hypertensive chronic kidney disease with stage 1 through stage 4 chronic kidney disease, or unspecified chronic kidney disease; E03.9 Hypothyroidism, unspecified; E78.5 Hyperlipidemia, unspecified; K21.9 Gastro-esophageal reflux disease without esophagitis; N18.30 Chronic kidney disease, stage 3 unspecified; Z87.891 Personal history of nicotine dependence; Z88.5 Allergy status to narcotic agent; Z88.8 Allergy status to other drugs, medicaments and biological substances; Z88.1 Allergy status to other antibiotic agents; Z79.899 Other long term (current) drug therapy
CPT/HCPCS: 74022; 80053; 81001; 83690; 85025; 99283-25

== ENCOUNTER 2020-10-06 07:28 | Emergency (ER) | payer MEDICARE ==
[~2020-10-06] VITALS: Ht 165.1 cm; Wt 70.3 kg
[~2020-10-06 07:28] MED LIST changes: +ENULOSE10 GM/15 M PO; +PREVACID15 MG PO; +STOOL SOFTENER100 MG PO
--- OUTSIDE RECORDS SUMMARY | 2020-10-06 07:30 | XMS ---
PreManage Notification: ARNAV HERNANDEZ Security [employer] Events No recent Security Events currently on file CRITERIA MET - [facility] - 2 Visits in 30 Days CARE PROVIDERS ÁLVARO FORD Internal Medicine 08/08/2018-Current PHONE: [phone] Nathan has no Care Guidelines for this patient. Care History Medical/Surgical 08/08/2018 [facility] - Patient is currently established with [facility]. If patient is seen in the ED during business hours. Please contact [facility] at [facility]. Care Recommendation: This patient has had 5 [...] providing care. E.D. VISIT COUNT (12 MO.) 2 [facility] TOTAL 2 NOTE: Visits indicate total known visits. ED/UCC VISIT TRACKING (12 MO.) 10/06/2020 07:29 [facility] TYPE: Emergency COMPLAINT: - CONSTIPATION ISSUES 09/28/2020 08:20 [facility] TYPE: Emergency COMPLAINT: - CONSTIPATION DIAGNOSES: - Allergy status to other drugs, medicaments and biological substances - Hypertensive chronic kidney disease with stage 1 through stage 4 chronic kidney disease, or unspecified chronic kidney disease - Chronic kidney disease, stage 3 unspecified - Gastro-esophageal reflux disease without esophagitis - Hypo-osmolality and hyponatremia - Hyperlipidemia, unspecified - Personal history of nicotine dependence - Allergy status to narcotic agent - Constipation, unspecified - Allergy status to other antibiotic agents - Hypothyroidism, unspecified - Other prison (current) drug therapy INPATIENT VISIT TRACKING (12 MO.) No inpatient visits to display in this time frame [email or web address]
== END 2020-10-06 09:28 | disposition home or self-care (01) ==
LOC: ED 07:28
DX: K59.00 Constipation, unspecified (principal); I12.9 Hypertensive chronic kidney disease with stage 1 through stage 4 chronic kidney disease, or unspecified chronic kidney disease; E03.9 Hypothyroidism, unspecified; E78.5 Hyperlipidemia, unspecified; K21.9 Gastro-esophageal reflux disease without esophagitis; N18.30 Chronic kidney disease, stage 3 unspecified; Z87.891 Personal history of nicotine dependence; Z88.5 Allergy status to narcotic agent; Z88.8 Allergy status to other drugs, medicaments and biological substances; Z88.1 Allergy status to other antibiotic agents; Z79.899 Other long term (current) drug therapy
CPT/HCPCS: 80053; 84443; 85025; 99283